=== PATIENT | female | born 1975 | race African-American/Black ===

== ENCOUNTER 2019-02-20 10:19 | Emergency (ER) | payer MEDICAID ==
--- NOTE | 2019-02-20 10:43 | ER Document Report ---
ED Medical Screen (RME) - General Chief Complaint: Chest Pain Stated Complaint: SHORT OF BREATH/LOWER BACK PAIN Time Seen by Provider: 02/20/19 10:39 TRAVEL OUTSIDE OF THE [place] IN LAST 30 DAYS: No - HPI Notes: 02/20/19 10:42 Patient is a 43-year-old female who presents emergency department complaining of left sternal chest pain that began 2 days ago and is worse with movement. The pain does not radiate and is described as sharp. She is a history of hypertension, but no other significant cardiopulmonary medical history. She is eating and drinking without difficulty. Denies KONG, fever, neck pain, URI, Abd pain, or rash. I have treated and performed a rapid initial assessment of this patient. A comprehensive ED assessment and evaluation of the patient, analysis of test results and completion of medical decision making process will be conducted by additional ED providers. PHYSICAL EXAMINATION: Chest: + tenderness to palpation of the lt sternal area LUNGS: Breath sounds clear to auscultation bilaterally and equal. No wheezes rales or rhonchi. HEART: Regular rate and rhythm without murmurs, rubs, gallops. Extremities: No cyanosis, clubbing, or edema b/l. Peripheral pulses 2+. C apillary refill less than 3 seconds. - Related Data Allergies/Adverse Reactions: lisinopril Allergy (Verified 02/20/19 10:21) Physical Exam - Vital signs Vitals: Temp Pulse Resp BP Pulse Ox 97.8 F 58 L 18 176/100 H 100 02/20/19 10:34 02/20/19 10:34 02/20/19 10:34 02/20/19 10:34 02/20/19 10:34 Course - Vital Signs Vital signs: Temp Pulse Resp BP Pulse Ox 97.8 F 58 L 18 176/100 H 100 02/20/19 10:34 02/20/19 10:34 02/20/19 10:34 02/20/19 10:34 02/20/19 10:34
--- NOTE | 2019-02-20 10:55 | EKG REPORT ---
SEVERITY:- NORMAL ECG - SINUS RHYTHM : Confirmed by: Geovani Dodd 20-Feb-2019 10:54:56
[2019-02-20 11:09] LABS: ABSOLUTE BASOPHILS # (AUTO) 0.1 10^3/uL (0.0-0.2); ABSOLUTE EOSINOPHILS # (AUTO) 0.4 10^3/uL (0.0-0.6); ABSOLUTE LYMPHOCYTES (AUTO) 2.1 10^3/uL (0.5-4.7); ABSOLUTE MONOCYTES (AUTO) 0.4 10^3/uL (0.1-1.4); ABSOLUTE NEUT (AUTO) 5.8 10^3/uL (1.7-8.2); EOSINOPHILS % (AUTO) 4.1 % (0-6); HEMATOCRIT 34.7 % (36.0-47.0); HEMOGLOBIN 11.1 g/dL (12.0-15.5); MEAN CORPUSCULAR HEMOGLOBIN 22.8 pg (27.0-33.4); MEAN CORPUSCULAR VOLUME 71 fl (80-97); MONOCYTES % (AUTO) 4.8 % (3-13); PLATELET COUNT 509 10^3/uL (150-450); RED BLOOD COUNT 4.87 10^6/uL (3.72-5.28); RED CELL DISTRIBUTION WIDTH 18.8 % (11.5-14.0); SEGMENTED NEUTROPHILS % (AUTO) 66.1 % (42-78); TOTAL CELLS COUNTED % (AUTO) 100 %; WHITE BLOOD COUNT 8.8 10^3/uL (4.0-10.5)
--- NOTE | 2019-02-20 11:14 | RADIOLOGY REPORT (SQ) ---
EXAM DESCRIPTION: CHEST SINGLE VIEW COMPLETED DATE/TIME: 02/20/2019 10:54 am REASON FOR STUDY: CP COMPARISON: None. EXAM PARAMETERS: NUMBER OF VIEWS: One view. TECHNIQUE: Single frontal radiographic view of the chest acquired. RADIATION DOSE: NA LIMITATIONS: None. FINDINGS: LUNGS AND PLEURA: No opacities, masses or pneumothorax. No pleural effusion. MEDIASTINUM AND HILAR STRUCTURES: No masses. Contour normal. HEART AND VASCULAR STRUCTURES: Heart normal in size. Normal vasculature. BONES: No acute findings. HARDWARE: None in the chest. OTHER: No other significant finding. IMPRESSION: NO ACUTE RADIOGRAPHIC FINDING IN THE CHEST. TECHNICAL DOCUMENTATION: JOB ID: [id number] [employer]- All Rights Reserved Reading location - IP/workstation name: [email or web address]
[2019-02-20 11:31] LABS: ALANINE AMINOTRANSFERASE 24 U/L (9-52); ALBUMIN 4.3 g/dL (3.5-5.0); ALKALINE PHOSPHATASE 105 U/L (38-126); ANION GAP 10 (5-19); ASPARTATE AMINO TRANSFERASE 18 U/L (14-36); BILIRUBIN,DIRECT 0.2 mg/dL (0.0-0.4); BILIRUBIN,TOTAL 0.5 mg/dL (0.2-1.3); BLOOD UREA NITROGEN 14 mg/dL (7-20); CALCIUM 9.9 mg/dL (8.4-10.2); CARBON DIOXIDE 25 mmol/L (22-30); CHLORIDE 107 mmol/L (98-107); GLUCOSE 92 mg/dL (75-110); POTASSIUM 3.6 mmol/L (3.6-5.0); SODIUM 141.9 mmol/L (137-145)
--- NOTE | 2019-02-20 12:57 | ER Document Report ---
ED Cardiac - General Chief Complaint: Chest Pain Stated Complaint: SHORT OF BREATH/LOWER BACK PAIN Time Seen by Provider: 02/20/19 10:39 Notes: 43-year-old female patient emergency department chief complaint of chest pain. Chest pain is been present on and off for approximately 3 days. Patient has had this on and off for several years. Had admission to the hospital a few years ago. Was seen around [place] [facility] and [place] she was admitted because her troponin was elevated. Followed by Dr. Brewster and Alfonso. Currently the pain is resolved. Pain started 3 days ago. Laying on the left side makes it worse. TRAVEL OUTSIDE OF THE [place] IN LAST 30 DAYS: No - HPI Patient complains to provider of: Chest pain Was the onset of pain: Gradual Is the pain a: Chronic problem Quality of pain: Achy Severity now: Mild Severity at worst: Mild Pain level currently: 1 Associated symptoms: None - Related Data Allergies/Adverse Reactions: lisinopril Allergy (Verified 02/20/19 10:21) Past Medical History - General Information source: Patient - Social History Smoking Status: Never Smoker Chew tobacco use (# tins/day): No Frequency of alcohol use: None Drug Abuse: None Lives with: Family Family History: CAD, Hypertension Patient has suicidal ideation: No Patient has homicidal ideation: No - Past Medical History Cardiac Medical History: Reports: Hx Hypertension Pulmonary Medical History: Reports: Hx Asthma Renal/ Medical History: Denies: Hx Peritoneal Dialysis Past Surgical History: Reports: Hx Orthopedic Surgery - right leg Review of Systems - Review of Systems Notes: Constitutional: denies: Chills, Diaphoresis, Fever, Malaise, Weakness EENT: denies: Eye discharge, Blurred vision, Tearing, Double vision, Nose congestion, Nose discharge, Throat swelling, Mouth pain Cardiovascular: denies: Palpitations, Heart racing, Orthopnea, Dyspnea, +Chest pain Respiratory: denies: Cough, Hurts to breathe, Wheezing, Shortness of breath Gastrointestinal: denies: Abdominal pain, Diarrhea, Nausea, Vomiting, Black stools, bright red blood in stool Genitourinary: denies: Burning, Dysuria, Discharge, Frequency, Flank pain, Hematuria Musculoskeletal: denies: Joint pain, Joint swelling, Muscle pain, Muscle stiffness, back pain Hematologic/Lymphatic: denies: Anemia, Easy bleeding, Easy bruising, Blood clots Neurological/Psychological: denies: Confusion, Dementia, Depression, Loss of consciousness Skin: No lesions, no masses, no skin breakdown, no abscesses Physical Exam - Vital signs Vitals: Temp Pulse Resp BP Pulse Ox 97.8 F 58 L 18 176/100 H 100 02/20/19 10:34 02/20/19 10:34 02/20/19 10:34 02/20/19 10:34 02/20/19 10:34 Interpretation: Normal - General General appearance: Appears well, Alert - HEENT Head: Normocephalic, Atraumatic Eyes: Normal Pupils: PERRL - Respiratory Respiratory status: No respiratory distress Chest status: Nontender Breath sounds: Normal Chest palpation: Normal - Cardiovascular Rhythm: Regular Heart sounds: Normal auscultation Murmur: No - Abdominal Inspection: Normal Distension: No distension Bowel sounds: Normal Tenderness: Nontender Organomegaly: No organomegaly - Back Back: Normal, Nontender - Extremities General upper extremity: Normal inspection, Nontender, Normal color, Normal ROM, Normal temperature General lower extremity: Normal inspection, Nontender, Normal color, Normal ROM, Normal temperature, Normal weight bearing. No: Lorenza's sign - Neurological Neuro grossly intact: Yes Cognition: Normal Orientation: AAOx4 Starla Coma Scale Eye Opening: Spontaneous [place] Coma Scale Verbal: Oriented Starla Coma Scale Motor: Obeys Commands Starla Coma Scale Total: 15 Speech: Normal Motor strength normal: LUE, RUE, LLE, RLE Sensory: Normal - Psychological Associated symptoms: Normal affect, Normal mood - Skin Skin Temperature: Warm Skin Moisture: Dry Skin Color: Normal Course - Re-evaluation Re-evalutation: 02/20/19 13:21 Laboratory 02/20/19 02/20/19 02/20/19 11:00 11:00 11:00 WBC 8.8 RBC 4.87 Hgb 11.1 L Hct 34.7 L MCV 71 L MCH 22.8 L MCHC 32.0 RDW 18.8 H Plt Count 509 H Seg Neutrophils % 66.1 Lymphocytes % 24.0 Monocytes % 4.8 Eosinophils % 4.1 Basophils % 1.0 Absolute Neutrophils 5.8 Absolute Lymphocytes 2.1 Absolute Monocytes 0.4 Absolute Eosinophils 0.4 Absolute Basophils 0.1 Sodium 141.9 Potassium 3.6 Chloride 107 Carbon Dioxide 25 Anion Gap 10 BUN 14 Creatinine 1.01 Est GFR ( Amer) > 60 Est GFR (Non-Af Amer) > 60 Glucose 92 Calcium 9.9 Total Bilirubin 0.5 Direct Bilirubin 0.2 Neonat Total Bilirubin Not Reportable Neonat Direct Bilirubin Not Reportable Neonat Indirect Bili Not Reportable AST 18 ALT 24 Alkaline Phosphatase 105 Troponin I < 0.012 Total Protein 8.0 Albumin 4.3 Chest X-Ray 02/20/19 10:41 IMPRESSION: NO ACUTE RADIOGRAPHIC FINDING IN THE CHEST. Chest x-ray is negative. EKG normal. Labs are normal. Negative troponin in the setting of symptoms that have been on and off for 3 days. I was able to talk to patient's cable mock up assembler in [place]. He knows patient well. Patient had extremely elevated hypertension when she was admitted to the hospital in July. During that hospitalization her cardiac troponin was 0.030 and came down after blood pressure control. She had a CTA of the chest to rule out PE and that was normal. She had a stress test in 2016 which was normal. Currently at this time patient does not want to be admitted. States that she has to go back to [place] today. The cable mock up assembler is aware that she may be coming back there and he is more than happy to see her tomorrow in the clinic or she can come back here where he is working at [facility] [employer] this weekend. At this time feel comfortable discharge in stable condition with very close outpatient follow-up. - Vital Signs Vital signs: Temp Pulse Resp BP Pulse Ox 97.8 F 58 L 15 167/86 H 100 02/20/19 10:34 02/20/19 10:34 02/20/19 12:02 02/20/19 12:02 02/20/19 12:02 - Laboratory Result Diagrams: 02/20/19 11:00 02/20/19 11:00 Laboratory results interpreted by me: 02/20/19 11:00 Hgb 11.1 L Hct 34.7 L MCV 71 L MCH 22.8 L RDW 18.8 H Plt Count 509 H Discharge - Discharge Clinical Impression: Left-sided chest pain Condition: Good Disposition: HOME, SELF-CARE Instructions: Chest Pain of Unclear Cause ([facility]) Additional Instructions: Please continue to take your blood pressure medications. Please call Dr. Sr office today or tomorrow to schedule a outpatient follow-up exam. In the event that your chest pain is getting worse please present to the nearest hospital for repeat evaluation. Referrals: SMITH BETANCOURT MD [[facility]] - 02/21/19
[2019-02-20] MEDS ORDERED: HYDRALAZINE HCL 50 MG TABLET PO ONE (13:38)
[2019-02-20] MEDS ORDERED: SPIRONOLACTONE 25 MG TABLET PO ONE (13:39)
[2019-02-20 14:18] VITALS: BP 148/101
== END 2019-02-20 14:19 | disposition home or self-care (01) ==
LOC: ER 10:19
DX: R07.9 Chest pain, unspecified (principal); R06.02 Shortness of breath; M54.5 Low back pain; I10 Essential (primary) hypertension; J45.909 Unspecified asthma, uncomplicated
CPT/HCPCS: 93005; 99284; 36415; 85025; 80053; 84484; 71045; 93010; J3490 ×2